=== PATIENT | male | born 1950 | race Caucasian/White ===

== ENCOUNTER → 2021-05-15 | Outpatient (CLI) | payer BC, MEDICARE ==
--- NOTE | 2021-05-15 12:13 | Diagnostic Imaging Report ---
PROCEDURE: CT abdomen and pelvis without contrast. TECHNIQUE: Multiple contiguous axial images were obtained through the abdomen and pelvis without the use of intravenous contrast. Auto Exposure Controls were utilized during the CT exam to meet ALARA standards for radiation dose reduction. INDICATION: Left flank pain. COMPARISON: No prior studies are available for comparison. FINDINGS: Lung bases demonstrate some scarring in the right lower lobe. There are plates and screws transfixing the lower right posterior ribs. Liver and gallbladder are unremarkable. There is no biliary ductal dilatation. Pancreas and spleen are unremarkable. No adrenal mass is detected. Both kidneys demonstrate vascular calcifications. There is no hydronephrosis. Aorta is heavily calcified but nonaneurysmal. The bowel loops appear to be normal in caliber. There is no obstruction. There is moderate stool in the right colon. No free fluid or fluid collection is identified. There are occasional diverticula in the descending and sigmoid colon but no evidence of acute diverticulitis. There is a compression fracture deformity involving the superior endplate of T11 which may be chronic. IMPRESSION: Chronic changes, as described. No acute feature in abdomen or pelvis is identified. Dictated by: Dictated on workstation # [id number]
== END ==
LOC: RAD FS 11:52
PROVIDERS: ATTEND Family Medicine
DX: J98.4 Other disorders of lung (principal); N28.89 Other specified disorders of kidney and ureter; I70.0 Atherosclerosis of aorta; M48.54XA Collapsed vertebra, not elsewhere classified, thoracic region, initial encounter for fracture; Z96.7 Presence of other bone and tendon implants
CPT/HCPCS: 74176